=== PATIENT | male | born 1970 | race Caucasian/White ===

== ENCOUNTER 2017-12-30 10:26 | Emergency (ER) | payer BC ==
[2017-12-30 10:34] VITALS: RESP 18
[2017-12-30] MEDS ORDERED: methylPREDNISolone SOD SUCCI 125 MG/2 ML VIAL IV STA (10:53)
[2017-12-30] MEDS ORDERED: diphenhydrAMINE 50 MG/ML 1 ML VIAL IVP STA (10:53)
--- NOTE | 2017-12-30 10:58 | ED ---
Extremity Problem HPI - General Chief complaint: Extremity Problem,Nontraumatic Stated complaint: Swollen Hand Time Seen by Provider: 12/30/17 10:37 Source: patient, RN notes reviewed Mode of arrival: ambulatory Limitations: no limitations - History of Present Illness Initial comments: This is a 47-year-old male presents emergency Department chief complaint of right hand swelling. Patient states his hand felt that she yesterday started to swell but has progressively getting worse. He did take Aleve yesterday with no relief and then he states that he took some aspirin today. Patient states his hand feels tight he is has no associated severe pain or paresthesias. No associated weakness. Patient states never had any like this in the past. Denies any open wounds or sores. Patient reports no fever no chills. Patient states she's had no chest pain or shortness breath no headache no dizziness. - Related Data Home Medications Medication Instructions Recorded Confirmed Aspirin Unknown Dose 2 tab PO ONCE PRN 12/30/17 12/30/17 Naproxen Sodium [Aleve] 440 mg PO DAILY PRN 12/30/17 12/30/17 Previous Rx's Medication Instructions Recorded predniSONE 50 mg PO DAILY #3 tab 12/30/17 Allergies Allergy/AdvReac Type Severity Reaction Status Date / Time No Known Allergies Allergy Verified 12/30/17 10:40 Review of Systems ROS Statement: Those systems with pertinent positive or pertinent negative responses have been documented in the HPI. ROS Other: All systems not noted in ROS Statement are negative. Past Medical History Past Medical History: Asthma History of Any Multi-Drug Resistant Organisms: None Reported Past Surgical History: Ear Surgery Past Psychological History: No Psychological Hx Reported Smoking Status: Current every day smoker Past Alcohol Use History: Occasional Past Drug Use History: Marijuana General Exam Limitations: no limitations General appearance: alert, in no apparent distress Head exam: Present: atraumatic, normocephalic, normal inspection Respiratory exam: Present: normal lung sounds bilaterally. Absent: respiratory distress, wheezes, rales, rhonchi, stridor Cardiovascular Exam: Present: regular rate, normal rhythm, normal heart sounds. Absent: systolic murmur, diastolic murmur, rubs, gallop, clicks Extremities exam: Present: other (Right hand there is moderate swelling that extends in the proximal forearm region radial pulses equal bilaterally Refill less than 2 seconds skin is slightly warm to the touch there is minimal erythema no open lesions sores or wounds noted. 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 Absent: rash Course Vital Signs 12/30/17 10:32 Temperature 97.6 F Pulse Rate 77 Respiratory 18 Rate Blood Pressure 166/101 O2 Sat by Pulse 99 Oximetry Medical Decision Making - Medical Decision Making 47-year-old male presented from it chief complaint of right hand swelling. Patient had ultrasound which showed no evidence of acute DVT. Patient has equal radial pulses no concerns for her GI issues. Patient had lab work which is unremarkable there is no elevation CRP at this time x-ray reviewed no acute abnormality. Do feel this is more related to a contact dermatitis /ALLERGY type symptoms. Patient will be treated conservatively at this time. He is advised to follow-up for recheck within 24 hours and return for any worsening symptoms. - Lab Data Result diagrams: 12/30/17 11:38 12/30/17 11:38 Lab Results 12/30/17 12/30/17 Range/Units 11:38 11:38 WBC 7.9 (3.8-10.6) k/uL RBC 4.22 L (4.30-5.90) m/uL Hgb 13.6 (13.0-17.5) gm/dL Hct 39.8 (39.0-53.0) % MCV 94.3 (80.0-100.0) fL MCH 32.3 (25.0-35.0) pg MCHC 34.2 (31.0-37.0) g/dL RDW 13.4 (11.5-15.5) % Plt Count 243 (150-450) k/uL Neutrophils % 69 % Lymphocytes % 21 % Monocytes % 4 % Eosinophils % 4 % Basophils % 1 % Neutrophils # 5.4 (1.3-7.7) k/uL Lymphocytes # 1.7 (1.0-4.8) k/uL Monocytes # 0.3 (0-1.0) k/uL Eosinophils # 0.3 (0-0.7) k/uL Basophils # 0.0 (0-0.2) k/uL Sodium 143 (137-145) mmol/L Potassium 4.3 (3.5-5.1) mmol/L Chloride 106 (98-107) mmol/L Carbon Dioxide 27 (22-30) mmol/L Anion Gap 10 mmol/L BUN 11 (9-20) mg/dL Creatinine 0.80 (0.66-1.25) mg/dL Est GFR (CKD-EPI)AfAm >90 (>60 ml/min/1.73 sqM) Est GFR (CKD-EPI)NonAf >90 (>60 ml/min/1.73 sqM) Glucose 91 (74-99) mg/dL Calcium 9.1 (8.4-10.2) mg/dL Total Bilirubin 0.3 (0.2-1.3) mg/dL AST 21 (17-59) U/L ALT 34 (21-72) U/L Alkaline Phosphatase 46 (38-126) U/L C-Reactive Protein <5.0 (<10.0) mg/L Total Protein 6.0 L (6.3-8.2) g/dL Albumin 3.9 (3.5-5.0) g/dL Disposition Clinical Impression: Swelling of right hand, Contact dermatitis Disposition: HOME SELF-CARE Condition: Stable Instructions: Contact Dermatitis (ED) Additional Instructions: Please return to the Emergency Department if symptoms worsen or any other concerns. Prescriptions: predniSONE 50 mg PO DAILY #3 tab Is patient prescribed a controlled substance at d/c from ED?: No Referrals: Smith Zarate MD [Primary Care Provider] - 1-2 days Time of Disposition: 12:42
[2017-12-30 11:47] LABS: Basophils % (A) 1 %; Eosinophils # (A) 0.3 k/uL (0-0.7); Eosinophils % (A) 4 %; HCT 39.8 % (39.0-53.0); HGB 13.6 gm/dL (13.0-17.5); Lymphocytes # (A) 1.7 k/uL (1.0-4.8); Lymphocytes % (A) 21 %; MCH 32.3 pg (25.0-35.0); MCHC 34.2 g/dL (31.0-37.0); MCV 94.3 fL (80.0-100.0); Mean Platelet Volume 7.5; Monocytes # (A) 0.3 k/uL (0-1.0); Monocytes % (A) 4 %; Neutrophils # (A) 5.4 k/uL (1.3-7.7); Neutrophils % (A) 69 %; Platelet Count 243 k/uL (150-450); RBC 4.22 m/uL (4.30-5.90); RDW 13.4 % (11.5-15.5); WBC 7.9 k/uL (3.8-10.6)
[2017-12-30 11:59] LABS: ALT 34 U/L (21-72); AST 21 U/L (17-59); Albumin 3.9 g/dL (3.5-5.0); Alkaline Phosphatase 46 U/L (38-126); Anion Gap 10 mmol/L; Blood Urea Nitrogen 11 mg/dL (9-20); C Reactive Protein <5.0 mg/L (<10.0); Calcium 9.1 mg/dL (8.4-10.2); Carbon Dioxide 27 mmol/L (22-30); Chloride 106 mmol/L (98-107); Glucose 91 mg/dL (74-99); Potassium 4.3 mmol/L (3.5-5.1); Sodium 143 mmol/L (137-145); Total Bilirubin 0.3 mg/dL (0.2-1.3)
--- NOTE | 2017-12-30 12:26 | US ---
EXAMINATION TYPE: US venous doppler duplex UE RT DATE OF EXAM: 12/30/2017 COMPARISON: NONE CLINICAL HISTORY: Pain. Right hand edema for 1 day SIDE PERFORMED: right Right Arm: no evidence of DVT Grayscale, color doppler, spectral doppler imaging performed of the deep veins of the right upper ext remity. There is normal flow, compressibility and vascular waveforms. IMPRESSION: No sonographic evidence of deep venous thrombosis within the right upper extremity. No sim perficial venous thrombosis identified.
--- NOTE | 2017-12-30 12:28 | XR ---
EXAMINATION TYPE: XR hand complete RT DATE OF EXAM: 12/30/2017 CLINICAL HISTORY: Right hand swelling with no known injury TECHNIQUE: Frontal, lateral and oblique images of the right hand are obtained. COMPARISON: None. FINDINGS: There is no acute fracture/dislocation evident in the right hand. The joint spaces in the right hand demonstrate mild degenerative change at the first metacarpophalangeal joint, first carpome tacarpal joint, and distal interphalangeal joints. Findings are displayed as joint space narrowing, opposing surface sclerosis and small marginal osteophytes. The overlying soft tissue appears unremark able. IMPRESSION: There is no acute fracture or dislocation in the right hand.
[2017-12-30 13:03] LABS: Erythrocyte Sedimentation Rate 2 mm/hr (0-15)
[2017-12-30 13:09] VITALS: BP 139/79; PULSE 64; TEMP 98.7
== END 2017-12-30 13:09 | disposition home or self-care (01) ==
LOC: EC 10:26
DX: L25.9 Unspecified contact dermatitis, unspecified cause (principal); F17.200 Nicotine dependence, unspecified, uncomplicated
CPT/HCPCS: 36415; 80053; 85652; 85025; 86140; 73130; 93971; 99284; 96374; 96375; J1200; J2930